=== PATIENT | male | born 1970 | race Caucasian/White ===

== ENCOUNTER → 2016-10-12 | Outpatient (CLI) | payer BC ==
--- NOTE | 2016-10-12 13:17 | PCVCIMAG ---
APPROVED REPORT Study performed: 10/12/2016 09:15:19 EXAM: Comprehensive 2D, Doppler, and color-flow Echocardiogram Patient Location: CV[facility] Status: routine BSA: 2.20 HR: 68 bpmBP: 126/82 mmHg Rhythm: NSR Other Information Study Quality: Excellent Indications CVA/TIA RULE OUT SHUNT Procedure After obtaining informed consent, patient underwent transesophageal echo in the [employer]. Type of Sedation : Conscious Sedation Sedation was administered by Emi Mehta RN. Versed (5MG) Fentanyl (125MCG) Transesophageal probe was inserted and advanced into esophagus without difficulty by Demetrio Ferrara MD. Echo enhancement indication: R/O Septal defect. Echo enhancement agent administered: Agitated Saline The MARII was performed without complications. Throughout the procedure, the blood pressure, pulse oximetry, cardiac rhythm, and rate were monitored. The patient tolerated the procedure without adverse effects. Recovery from conscious sedation was uneventful and vital signs were stable. Left Ventricle The left ventricle is normal size. There is normal LV segmental wall motion. There is normal left ventricular wall thickness. Left ventricular systolic function is normal. The left ventricular ejection fraction is within the normal range. LVEF is 55-60%. Right Ventricle The right ventricle is normal size. The right ventricular systolic function is normal. Atria The left atrium size is normal. Interatrial septum is intact without evidence of ASD or PFO. Injection of agitated saline documented no interatrial shunt. The right atrium size is normal. Aortic Valve The aortic valve is normal in structure, trileaflet. No aortic regurgitation is present. There is no aortic valvular stenosis. Mitral Valve The mitral valve is normal in structure. There is no mitral valve regurgitation noted. No evidence of mitral valve stenosis. Tricuspid Valve The tricuspid valve is normal in structure. There is no tricuspid valve regurgitation noted. Pulmonic Valve The pulmonary valve is normal in structure. There is no pulmonic valvular regurgitation. Great Vessels The aortic root is normal in size. The ascending aorta is normal in size. Aortic arch is normal in caliber. Pericardium There is no pericardial effusion. <Conclusion> Left ventricular systolic function is normal. There is normal LV segmental wall motion. LVEF is 55-60%. Interatrial septum is intact without evidence of ASD or PFO. Injection of agitated saline documented no shunt. No masses or clots in the left atrium or appendage The aortic valve is normal in structure, trileaflet. No aortic regurgitation or stenosis. The mitral valve is normal in structure. No mitral valve regurgitation noted. There is no pericardial effusion. The ascending aorta is normal in size. Aortic arch is normal in caliber.
== END | disposition home or self-care (01) ==
LOC: PCVCINTER 08:48
PROVIDERS: ATTEND Internal Medicine
DX: I63.9 Cerebral infarction, unspecified (principal); E78.5 Hyperlipidemia, unspecified; I10 Essential (primary) hypertension
CPT/HCPCS: 93312; 93325; 99152